=== PATIENT | male | born 1970 | race African-American/Black ===

== ENCOUNTER 2017-07-28 16:14 | Emergency (ER) | payer BC ==
[~2017-07-28] VITALS: Ht 172.7 cm; Wt 86.0 kg
[2017-07-28] MEDS ORDERED: DILT240C92 PO (16:23)
[2017-07-28 22:30] VITALS: BP 126/71
== END 2017-07-28 23:41 | disposition home or self-care (01) ==
LOC: ER 16:34
DX: M79.605 Pain in left leg (principal); I10 Essential (primary) hypertension
CPT/HCPCS: 93971; 99284; Z7610